=== PATIENT | male | born 1965 | race Caucasian/White ===

== ENCOUNTER → 2022-08-09 14:37 | Outpatient (CLI) | payer OTHER, SELFPAY ==
--- NOTE | ~2022-08-09 | MR_ITS ---
EXAMINATION: MR shoulder RT wo con DATE: 08/09/2022 15:15 INDICATION: Right shoulder pain TECHNIQUE: Magnetic resonance imaging (MRI) of the right shoulder was performed without intravenous c ontrast. Sequences included axial PD-weighted FS FSE, coronal oblique PD-weighted FS FSE, coronal obl ique T2-weighted FS FSE, sagittal PD-weighted FS FSE, and sagittal T1-weighted SE. COMPARISON: None. FINDINGS: Coracoacromial arch: The acromion undersurface is curved in morphology (type II). The coracoacromial ligament is normal. M oderate acromioclavicular osteoarthritis. Rotator cuff: Moderate supraspinatus tendinopathy. There is attenuation of the distal 1.5 cm of the tendon beginnin g at the mild thickening of the rotator cable suggesting a mild partial-thickness articular sided tea r involving less than one third of the tendon thickness. Additionally there is a thin full-thickness longitudinal split tear extending approximately 1 cm medially from the level of the footplate of the supraspinatus tendon but without a measurable AP width to the tear. Mild infraspinatus and subscapula ris tendinopathy without discrete tear. The teres minor tendon is normal. Normal rotator cuff muscle bulk and signal. Biceps tendon, glenoid labrum and glenohumeral cartilage: Long head of the biceps tendon is normal. Amorphous mild increased signal consistent with labral dege neration at the 12:00-12:30 position of the superior glenoid labrum and located posterior to a normal small anterosuperior sublabral foramen. More ill-defined linear high signal intensity tear of the an terior labrum beginning at the 2:00 position extending to the 4:00 position. Mild glenohumeral osteoa rthritis with small marginal ossified along the inferior glenoid and mild partial-thickness cartilage loss with smooth chondral surface along the anteroinferior aspect of the humeral head and at the mid to cephalad third of the glenoid. Fluid: Physiologic amount fluid in the glenohumeral joint. Mild increased fluid in the long head biceps tend on sheath consistent with mild bicipital tenosynovitis. No loose osteochondral bodies. Small amount o f fluid in the subacromial/subdeltoid and subcoracoid bursae which could be due to either bursitis or decompression of the glenohumeral joint fluid through the suspected full-thickness supraspinatus ten don split tear. Bones: Bone alignment is normal. No fracture or pathologic marrow replacing process. Small erosion at the an terior superior facet footplate. IMPRESSION: 1. Moderate rotator cuff tendinopathy with mild partial-thickness articular sided tear of the suprasp inatus tendon and superimposed small thin full-thickness longitudinal split tear at the distal tendon . 2. Mild right glenohumeral osteoarthritis with tear of the anterior labrum and degeneration at the an terosuperior labrum. 3. Moderate acromioclavicular osteoarthritis. 4. Mild bicipital tenosynovitis. 4. Small amount of fluid in the subacromial/subdeltoid and subcoracoid bursae which could be due to b ursitis or decompression of fluid through the suspected small full-thickness supraspinatus tendon spl it tear. Reviewed, dictated and finalized at location A. IMPRESSION: 1. Moderate rotator cuff tendinopathy with mild partial-thickness articular brenda ed tear of the supraspinatus tendon and superimposed small thin full-thickness longitudinal split tear at the distal tendon. 2. Mild right glenohumeral osteoarthritis with tear of the anterior labrum and degeneration at the anterosuperior labrum. 3. Moderate acromioclavicular osteoarthritis. 4. Mild bicipital tenosynovitis. 4. Small amount of fluid in the subacromial/subdeltoid and subcoracoid bursae w hich could be due to bursitis or decompression of fluid through the suspected
== END ==
PROVIDERS: PCP Family Medicine
DX: M75.21 Bicipital tendinitis, right shoulder (principal); M19.011 Primary osteoarthritis, right shoulder
CPT/HCPCS: 73221